=== PATIENT | female | born 1990 | race Caucasian/White ===

== ENCOUNTER 2021-12-02 18:08 | Emergency (ER) | payer SELFPAY ==
[~2021-12-02] VITALS: Ht 152.4 cm; Wt 50.0 kg
[2021-12-02 21:05] LABS: EOSINOPHILS % 2.6 % (0.0-5.0); HEMATOCRIT. 40.5 % (36.0-48.0); HEMOGLOBIN. 13.5 g/dL (12.0-16.0); MEAN CORPUSCULAR HEMOGLOBIN 29.3 pg (28.0-32.0); MEAN CORPUSCULAR VOLUME 87.9 fL (81.0-99.0); MEAN PLATELET VOLUME 10.2 fl (7.4-10.4); MONOCYTES % 8.1 % (2.0-8.0); NEUTROPHILS % 45.3 % (40.0-76.0); PLATELET 283 x1000/uL (130-400); RED BLOOD CELL COUNT 4.61 mill/uL (4.2-5.4); RED CELL DISTRIBUTION WIDTH 12.6 % (11.6-14.6)
[2021-12-02 21:07] LABS: HCG SCREEN NEGATIVE
[2021-12-02 22:00] LABS: CHLORIDE 105 mEq/L (98-107)
[2021-12-02] MEDS ORDERED: METO5TAB86 MT (22:51)
[2021-12-02] MEDS ORDERED: PROT20 MT (22:51)
[2021-12-02 23:00] VITALS: BP 134/74
== END 2021-12-02 23:00 | disposition home or self-care (01) ==
LOC: ER 18:08
DX: K21.9 Gastro-esophageal reflux disease without esophagitis (principal)
CPT/HCPCS: 36415; 80053; 81025; 84703; 85025; 99283